=== PATIENT | female | born 1940 | race Caucasian/White ===

== ENCOUNTER 2017-06-05 12:29 | Inpatient (IN) ==
[2017-06-05 13:11] LABS: MANUAL DIFF NEEDED? NO
[2017-06-05 13:13] LABS: BASO% 0.2 % (0.0-0.8); EOS# 0.14 X1000 (0.0-0.7); EOS% 2.9 % (0.0-10.0); HEMATOCRIT 31.7 % (37.0-47.0); HEMOGLOBIN 10.2 g/dL (12.0-16.0); IMM GRAN# 0.01 X1000 (0.0-0.04); IMM GRAN% 0.2 % (0.0-0.5); LYMPH# 1.43 X1000 (1.2-3.4); MCHC 32.2 g/dL (33-37); MCV 96.4 FL (81-99); MONO% 8.4 % (1.7-9.3); MPV 10.1 FL (7.4-10.4); NEUT% 58.3 % (42.2-75.2); PLT 166 X1000 (130-400); RBC 3.29 XMIL (4.2-5.4)
[2017-06-05 13:26] LABS: AGAP 10; ALBUMIN 3.7 g/dL (3.5-5.0); ALKALINE PHOSPHATASE 93 U/L (32-104); AMYLASE 50 U/L (20-200); BUN 20 mg/dL (8-22); CALCIUM 9.3 mg/dL (8.8-10.2); CHLORIDE 98 mmol/L (98-107); CK PROFILE 34 U/L (24-173); COSMO 274; GOT 13 U/L (10-30); GPT 12 U/L (10-36); LIPASE 82 U/L (13-60); SODIUM 135 mmol/L (136-145); TCO2 28 mmol/L (25-35); TOTAL PROTEIN 7.8 g/dL (6.3-8.3)
[2017-06-05] MEDS ORDERED: NS 1,000 ML IV ONE (13:41)
[2017-06-05] MEDS ORDERED: DILAUDID IV ONE (13:42)
[2017-06-05] MEDS ORDERED: ZOFRAN IV ONE (13:42)
[2017-06-05 16:10] LABS: BILIRUBIN URINE NEGATIVE (NEGATIVE); BLOOD URINE 1+ (NEGATIVE); CLARITY CLEAR (CLEAR); COLOR YELLOW; GLUCOSE URINE NEGATIVE (NEGATIVE); LEUKOCYTES URINE 2+ (NEGATIVE); NITRITE URINE NEGATIVE (NEGATIVE); PROTEIN URINE NEGATIVE (NEGATIVE); SP GRAVITY URINE 1.015; UROBILINOGEN URINE NORMAL
[2017-06-05 16:26] LABS: URINE SOURCE CLEAN CATCH
[2017-06-05 16:29] LABS: URINE CULTURE PL NEEDED? YES; URINE EPITHELIAL CELLS <10 /HPF (<10); URINE RBC <10 /HPF (<10); URINE SMALL ROUND CELLS RENAL PRESENT
--- NOTE | 2017-06-05 17:19 | PROVIDER DOCUMENTATION ---
This chart was entered by Connor Nettles Scribe, acting as scribe for Jose Bonilla MD. HPI-Abdominal Pain/GI Problem - General Chief Complaint: Nausea/Vomiting Stated Complaint: DIZZINESS Time Seen by Provider: 06/05/17 12:59 Source: patient, family Allergies/Adverse Reactions: Patient Allergies Allergy/AdvReac Type Severity Reaction Status Date / Time dextromethorphan HBr * Allergy Mild FLUSHING Verified 02/03/17 20:09 [From NyQuil] doxylamine [From NyQuil] Allergy Mild FLUSHING Verified 02/03/17 20:09 pseudoephedrine HCl * Allergy Mild FLUSHING Verified 02/03/17 20:09 [From NyQuil] erythromycin base Allergy DIARRHEA Verified 02/03/17 20:09 ferrous gluconate AdvReac Unknown Verified 02/03/17 20:09 [From Centrum] folic acid [From Centrum] AdvReac Unknown Verified 02/03/17 20:09 lutein [From [facility]] AdvReac Unknown Verified 02/03/17 20:09 lycopene [From Centrum] AdvReac Unknown Verified 02/03/17 20:09 multivit with calcium, iron, AdvReac Unknown Verified 02/03/17 20:09 a... * [From Centrum] multivitamin with iron,other AdvReac Unknown Verified 02/03/17 20:09 m... * [From Centrum] multivitamin with minerals * AdvReac Unknown Verified 02/03/17 20:09 [From [facility]] Home Medications: Home Medication List Medication Instructions Recorded Confirmed Last Taken Type Aspirin 81 mg PO HS 01/20/14 02/04/17 02/03/17 History Levothyroxine [Synthroid] 50 microgm PO DAILY 01/20/14 02/03/17 02/03/17 History Calcium 1,000 mg PO BID 03/25/16 02/04/17 02/03/17 History Cholecalciferol (Vitamin D3) 1 tab PO DAILY 03/25/16 02/03/17 02/03/17 History [Vitamin D3] Ferrous Sulfate E.r. [Slow-Fe] 45 mg PO TID 03/25/16 02/04/17 02/03/17 History Carvedilol [Coreg] 12.5 mg PO AC + HS 11/27/16 02/04/17 02/03/17 History Hydrocodone/Acetaminophen [Lortab 1 tab PO Q6H PRN PRN #25 tablet 11/30/1602/04 Unknown Rx 7.5-325 mg Tablet] Bumetanide [Bumex] 1 mg PO DAILY #30 tablet 02/07/17 Unknown Rx - History of Present Illness-ABD Nature of Presenting Problems: Patient is a 77 y/o F that presents to the ER with n/v/d,dizziness, and abdominal pain that began this am. Patient reports history of pancreatitis and has flare ups every so often. No chest pain, shortness of breath, or fever Abdominal Pain Onset Location: reports: epigastric Pain Radiation: reports: RUQ Quality of Pain: reports: aching, cramping Severity in ED: reports: moderate Onset/Duration: reports: abrupt, this morning Timing: reports: still present, constant Activities at Onset: reports: none Modifying Factors: improves with: nothing Associated Symptoms: reports: diarrhea, dizziness, nausea, vomiting. denies: back/neck pain, chest pain, fever/chills, genitourinary problems Similar Symptoms Previously?: Yes Recently seen or treated by another doctor?: No Review of Systems - Adult - REVIEW OF SYSTEMS - ADULT Constitutional: denies: chills, fever Eyes: reports: no symptoms reported Ears, Nose, Mouth & Throat: denies: ear discharge, sinus problem, throat pain, throat swelling Cardiovascular: denies: chest pain, palpitations, syncope Respiratory: denies: cough, shortness of breath, wheezing Gastrointestinal: reports: abdominal pain, diarrhea, nausea, vomiting. denies: hematemesis, rectal bleeding Genitourinary: denies: dysuria, frequency, hematuria Musculoskeletal: reports: no symptoms reported Integumentary: reports: no symptoms reported Neurological: reports: dizziness/vertigo. denies: headache/migraines Psychiatric: reports: no symptoms reported Endocrine: reports: no symptoms reported Hematologic/Lymphatic: reports: no symptoms reported Allergic/Immunologic: reports: no symptoms reported All Other Systems: Reviewed and Negative Past History - Adult - PAST MEDICAL HISTORY-ADULT Review of Records: reports: Old Records Reviewed, Nursing Assessment Review, Medications Reviewed Cardiovascular: reports: HTN, heart valve problem (leaky), pacemaker (defib) Gastrointestinal: reports: pancreatitis Neurological: reports: other (Vertigo) Endocrine/Immune: reports: anemia, thyroid disorder (hypo) - PRIOR SURGERIES/PROCEDURES Surgical/Procedure History: reports: cholecystectomy, tonsillectomy - PRIOR HOSPITALIZATIONS Prior Hospitalizations: reports: none - IMMUNIZATION STATUS Childhood Immunizations: UTD Flu Vaccine: See Nurse Assessment - FAMILY HISTORY Family History: reviewed, not pertinent - SOCIAL HISTORY Smoking: non-smoker Living Situation: family Physical Exam-General - PHYSICAL EXAM-ADULT Initial Vital Signs Reviewed: Yes - CONSTITUTIONAL General Appearance: alert, mild distress, moderate distress, other (ill appearing) - EYES Eyes: PERRL/EOMI, pink conjunctivae - HEAD, EARS, NOSE, MOUTH & THROAT HENMT: normocephalic/atraumatic, pharynx normal, other (dry oral mucosa) - NECK Neck: full range of motion, normal inspection - RESPIRATORY Respiratory: lungs clear, normal breath sounds, no respiratory distress, no accessory muscle use - CARDIOVASCULAR Cardiovascular: regular rate, rhythm, no edema - GASTROINTESTINAL (ABDOMEN) Abdominal Exam: normal bowel sounds, soft, no organomegaly, no pulsatile mass, tenderness (diffusely but epigastric/ruq) - MUSCULOSKELETAL Extremity: normal range of motion, normal inspection - SKIN Integumentary: normal color, warm/dry - NEUROLOGIC Neurologic: talent development consultant II-XII nml as tested, no motor/sensory deficits - PSYCHIATRIC Psych/Mental Status: normal mood/affect, normal thought content, normal thought process, oriented x 3 Progress - PLAN OF CARE/RESULTS Progress/Plan/Lab Results: Vital Signs - 8 hr 06/05/17 12:33 Temperature 98 F Pulse Rate 68 Respiratory Rate 19 Blood Pressure 163/80 O2 Sat by Pulse Oximetry 98 Laboratory Results - last 24 hr 06/05/17 06/05/17 06/05/17 12:55 12:55 12:55 WBC 4.76 L RBC 3.29 L Hgb 10.2 L Hct 31.7 L MCV 96.4 MCH 31.0 MCHC 32.2 L RDW Std Deviation 13.0 Plt Count 166 MPV 10.1 Immature Gran % (Auto) 0.2 Neut % (Auto) 58.3 Lymph % (Auto) 30.0 [place] % (Auto) 8.4 Eos % (Auto) 2.9 Baso % (Auto) 0.2 Immature Gran # (Auto) 0.01 Neut # (Auto) 2.77 Lymph # (Auto) 1.43 [place] # (Auto) 0.40 Eos # (Auto) 0.14 Baso # (Auto) 0.01 Sodium 135 L Potassium 4.0 Chloride 98 Carbon Dioxide 28 Anion Gap 10 BUN 20 Creatinine 0.9 Estimated GFR/1.73 m2 > 60 BUN/Creatinine Ratio 22 Glucose 122 H Calculated Osmolality 274 Calcium 9.3 Total Bilirubin 0.20 AST 13 ALT 12 Alkaline Phosphatase 93 Creatine Kinase 34 Troponin T < 0.010 Total Protein 7.8 Albumin 3.7 Globulin 4.0 Albumin/Globulin Ratio 1.0 Amylase 50 Lipase 82 H Orders Category Date Time Status AMYLASE [CHEM] Stat Lab 06/05/17 12:55 Completed CBC WITH DIFF [HEME] Stat Lab 06/05/17 12:55 Completed CK PROFILE [SP CHEM] Stat Lab 06/05/17 12:55 Completed COMPREHENSIVE METABOLIC PANEL [CHEM] Stat Lab 06/05/17 12:55 Completed LIPASE [CHEM] Stat Lab 06/05/17 12:55 Completed TROPONIN T Stat Lab 06/05/17 12:[address] W/POSS RFLX CULT [URINALYSIS] Stat Lab 06/05/17 12:40 Uncollected Result Diagrams: 06/05/17 12:55 06/05/17 12:55 Departure - Departure Date of Disposition Decision: 06/05/17 Time of Disposition Decision: 17:19 DIAGNOSIS: Pancreatitis Disposition: ADMITTED INPATIENT 09 Certified Medical Emergency: Emergent Condition: Stable Referrals and Follow-Ups: Linda Rossi MD [Primary Care Provider] - - Critical Care Note This patient required my direct & personal management of CC.: No Attestation - Physician/ ONEL Attestation The physician spent face to face time with patient:: Yes Advanced Practice Provider documentation review:: The physician spent face to face time with this patient and agrees with all MLP documentation, treatment, and medical decision making by the MLP. See provider notes for further information. This chart was documented by the indicated scribe, (Connor Nettles, Scribariel) and accurately reflects the services I performed and decisions made by me, Jose Bonilla MD, as attested by the provider's signature.
[2017-06-05] MEDS ORDERED: DILAUDID IV PRN (18:23)
[2017-06-05] MEDS: NS 1,000 ML IV SCH (18:29)
[2017-06-05] MEDS: ZOFRAN IV PRN (21:14)
[2017-06-06] MEDS: NS 1,000 ML IV SCH (04:25)
[2017-06-06 05:50] LABS: HEMATOCRIT 30.6 % (37.0-47.0); HEMOGLOBIN 9.6 g/dL (12.0-16.0); MCH 30.4 PG (27-31); MCHC 31.4 g/dL (33-37); MCV 96.8 FL (81-99); MPV 10.2 FL (7.4-10.4); RBC 3.16 XMIL (4.2-5.4)
[2017-06-06 06:07] LABS: AGAP 9; ALBUMIN 3.1 g/dL (3.5-5.0); ALKALINE PHOSPHATASE 81 U/L (32-104); AMYLASE 35 U/L (20-200); BUN 16 mg/dL (8-22); CALCIUM 8.9 mg/dL (8.8-10.2); CHLORIDE 107 mmol/L (98-107); COSMO 281; GOT 12 U/L (10-30); GPT 10 U/L (10-36); HDL 37 mg/dL (45-65); LDL 85 mg/dL; LIPASE 51 U/L (13-60); POTASSIUM 3.6 mmol/L (3.5-5.1); SODIUM 140 mmol/L (136-145); TCO2 24 mmol/L (25-35); TOTAL BILIRUBIN < 0.15 mg/dL (0.20-1.00); TOTAL PROTEIN 6.6 g/dL (6.3-8.3); TRIGLYCERIDES 142 mg/dL (35-135); VLDL 28 mg/dL
[2017-06-06] MEDS: ZOFRAN IV PRN (06:25)
--- NOTE | 2017-06-06 08:40 | EKG Report ---
Test Performed on : 06/06/2017 08:37:12 AM Test Reason : near syncope Blood Pressure : / mmHG Vent. Rate : 062 BPM Atrial Rate : 062 BPM P-R Int : 124 ms QRS Dur : 142 ms QT Int : 490 ms P-R-T Axes : 071 268 070 degrees QTc Int : 497 ms AV dual-paced rhythm with occasional ventricular-paced complexes Abnormal ECG When compared with ECG of 05-FEB-2017 07:45, Electronic ventricular pacemaker has replaced Sinus rhythm. Confirmed by Orestes Robertson MD ([id number]) on 06/11/2017 10:30:44 PM
[2017-06-06] MEDS ORDERED: LOVENOX SUBQ SCH (09:00)
--- NOTE | 2017-06-06 12:02 | HISTORY AND PHYSICAL ---
CHIEF COMPLAINT: Abdominal pain, nausea and vomiting. HISTORY OF PRESENT ILLNESS: This is a 77-year-old female with a history of pancreatitis who presented to the emergency room complaining of nausea, vomiting, diarrhea and dizziness along with abdominal pain that began earlier in the day. She does state this feels like her prior pancreatitis. She does report having some epigastric to right upper quadrant pain. It is a cramping-type pain that started abruptly it has remained constant although the severity does lessen at times. She has had 2 diarrhea stools. She denied chest pain, shortness of breath, fever, black or bloody vomitus, black or bloody stools. She was noted to have a lipase of 82. She does report having a cholecystectomy in November, and she has had intermittent diarrhea since. She is being admitted for further evaluation and treatment. PAST MEDICAL HISTORY: 1. Hypertension. 2. Hypothyroid. 3. Left bundle branch block. PAST SURGICAL HISTORY: Tonsillectomy. SOCIAL HISTORY: She lives with her . Denies alcohol, tobacco, or illicit drug use. ALLERGIES: Acetaminophen, NyQuil, Centrum. HOME MEDICATIONS: 1. Bumex 1 mg daily. 2. Synthroid 50 mcg daily. 3. Spironolactone 25 daily. 4. Coreg 12.5. 5. Losartan 100 mg daily. 6. Culturelle daily. 7. Omeprazole 40 daily. 8. Slow FE 45 mg 9, 1, and 9. 9. Vitamin D3 2000 units daily. 10. Calcium 500 units 12 and 12. 11. Percocet 5 every 6 hours p.r.n. 12. Antivert 25 mg t.i.d. p.r.n. REVIEW OF SYSTEMS: A 14-point review of systems is discussed with patient with pertinent positives stated in the HPI. She denied any chest pain, palpitations, any PND, orthopnea, any black or bloody vomitus, black or bloody stools, hematuria, dysuria, frequency, urgency. PHYSICAL EXAMINATION: GENERAL: This is a 77-year-old female who is sitting in the bed in no distress. VITAL SIGNS: Blood pressure is 151/67 with a heart rate of 61. Respirations are 17. Temperature is 97.5 degrees with room air saturations of 100%. HEENT: Head is normocephalic, atraumatic. Pupils equal, round, react to light. EOMs are intact. Sclerae are anicteric. Mucous membranes are moist. NECK: Supple with trachea midline. CARDIOVASCULAR: Regular rate and rhythm. S1 and S2 are appreciated. PULMONARY: Breath sounds are clear with no increased work of breathing noted. GASTROINTESTINAL: Abdomen is soft and non tender, nondistended with bowel sounds in all 4 quadrants. BACK: No CVAT. No spine tenderness. MUSCULOSKELETAL: Good range of motion of joints. SKIN: Warm and dry with no rashes or lesions noted. EXTREMITIES: No clubbing, cyanosis, or edema. Calves are nontender. Pulses are palpable x4. DIAGNOSTICS: WBC is 4.16 with hemoglobin of 9.6, hematocrit 30.6 and platelets of 152,000. Sodium is 140, potassium 3.6. BUN 16, creatinine 0.7 with a glucose of 104. Lipase is 82. ASSESSMENT: This is a 77-year-old female with a history of pancreatitis who comes in with epigastric right upper quadrant pain. Nausea and vomiting. 1. Nausea and vomiting. 2. Acute pancreatitis on chronic pancreatitis. We will give IV hydration. We will trend labs. We will check triglycerides in the morning. Clear liquids and advance as tolerated. 3. Nausea and vomiting. IV antiemetics with sips of liquids. 4. Dizziness. This is chronic. She has been diagnosed with vertigo in the past. She has Antivert p.r.n. 5. Iron deficiency anemia. We will continue with her supplementation. 6. Hypertension. We will continue her home medications. 7. Hypothyroid. Continue her Synthroid. 8. Known right renal mass that is being followed by Dr. Flores in [place]. PLAN: She will be admitted to the hospital. We will give sips of liquids and ice chips and, if she tolerates this, we will advance her to clear liquids. We will continue with IV hydration as well as pain and nausea control. For DVT prophylaxis, we will use Lovenox and for GI prophylaxis we will use Prilosec. Dictated by NOHELIA Morris for Torsten Brewer MD cc: NOHELIA Morris MD
[2017-06-06 16:32] VITALS: BP 138/56
--- NOTE | 2017-06-07 10:56 | DISCHARGE SUMMARY ---
ADMISSION DATE: 06/05/2017 DISCHARGE DATE: 06/06/2017 DIAGNOSES: 1. Nausea and vomiting, resolved. 2. Acute pancreatitis, at the setting of chronic pancreatitis. Symptoms have resolved. 3. Dizziness, chronic. 4. Iron deficiency anemia. 5. Hypertension. 6. Hypothyroid. 7. Known right renal mass, being followed by Dr. Flores in [place]. HOSPITAL COURSE: Ms. Balderas presented to the emergency room complaining of abdominal epigastric pain and nausea and vomiting. She states this is consistent with her past pancreatitis pain. She was found to have a lipase of 82. Repeat did decrease down to 51. We advanced her diet slowly and she has tolerated full liquids with no abdominal pain, nausea, or vomiting. She has been walking through the hospital and thankfully she states she feels fine and she is ready to go home. DISCHARGE PHYSICAL EXAMINATION: Cardiovascular: Regular rate and rhythm S1, S2 appreciated. Pulmonary: Breath sounds are clear with no increased work of breathing noted. Gastrointestinal: Abdomen is soft, nontender, nondistended. Bowel sounds in all 4 quadrants. Extremities: No clubbing, cyanosis, or edema. Calves are nontender. Pulses are palpable x4. Neurologic: She is alert and oriented x3. Cranial nerves 2-12 grossly intact. DISCHARGE MEDICATIONS: Co-Q enzyme 2 daily, Antivert 25 mg p.r.n., loratadine 10 at bedtime, Percocet 5 one to two q.6 hours p.r.n., calcium 500 b.i.d., Vitamin D3 2000 daily, slow iron at 45 mg t.i.d., omeprazole 40 mg daily, Culturelle one capsule daily, vitamin B12 1000 sublingual daily, losartan 100 daily, Coreg 12.5, spironolactone 25 mg daily, Synthroid 50 mcg daily, Bumex 1 mg daily. DISCHARGE FOLLOWUP: 1. She needs to followup with her primary care physician in the next 1-2 weeks. 2. She is to followup with her doctor, Dr. Flores, in [place] as scheduled for her right renal mass. 3. She is being discharged home in stable condition with family members. TIME SPENT: This is a greater than 30 minute discharge. Dictated by NOHELIA Morris for Torsten Brewer MD cc: Sanam NOHELIA Cannon MD
== END 2017-06-06 16:45 | disposition home or self-care (01) ==
LOC: P.ED 12:29 → P.MEDSURG 17:45
PROVIDERS: ATTEND Internal Medicine